=== PATIENT | male | born 1935 | race Two or more races ===

== ENCOUNTER 2018-05-23 18:45 | Inpatient (IN) | payer MEDICARE, MEDICAID ==
--- NOTE | 2018-05-23 18:49 | ED Physician Chart ---
ED Chief Complaint/HPI - Patient Information Date Seen:: 05/23/18 Time Seen:: 18:48 Chief Complaint:: Dysuria History of Present Illness:: 82 yo male with history of urinary incontinence and UTI for 6 months. Patient was recently seen by a urologist Dr. Ryan Gauthier 4 days ago. BPH was ruled out by the urologist. The office of urologist called patient today to inform positive urinary tract infection. In addition, patient was recently noticed by family to become more confused with loss of short term memory. Patient was brought by daughter to ER for evaluation of confusion and UTI. Patient's recent CT head wo contrast done at [facility] on 01/11/18 showed old right occipital infarct, old left basal ganglia lacunar infarct. Lumbar spine X ray on 01/12/18 showed degenerative disc disease L4-5 and L5-S1 without acute disease or lumbar compression. ED Review of Systems - Review of Systems General/Constitutional: No fever, No chills, Weakness Skin: No rash Head: No headache Eyes: No pain ENT: No nasal drainage Neck: No neck pain Cardio Vascular: No chest pain Pulmonary: Cough, Sputum GI: No nausea, No vomiting G/U: Dysuria Musculoskeletal: No bone or joint pain Neurological: Other (unsteady gait) ED Past Medical History - Past Medical History Past Medical History: HTN, DM, CVA/TIA, Dementia, Other (Urinary incontinence) Social History: Non Smoker (former somker), No Alcohol, No Drug Use Surgical History: other (Kidney stone removal ) Family Medical History - Family Member Mother History Unknown: Yes ED Physical Exam - Physical Examination General/Constitutional: Awake, Alert Head: Atraumatic Eyes: PERRL Skin: No ecchymosis ENMT: Nasal exam nl Neck: No nuchal rigidity Cardio Vascular: RRR, No murmur, gallop, rubs, NL S1 S2 GI: No tenderness/rebounding/guarding Extremities: Full ROM Neuro/Psych: No focal deficits ED Labs/Radiology/EKG Results - Lab Results Results: Laboratory Results - last 24 hr 05/23/18 05/23/18 05/23/18 19:10 19:10 19:10 WBC 7.4 RBC 5.10 Hgb 13.1 Hct 40.1 L MCV 78.6 L MCH 25.7 L MCHC Differential 32.8 RDW 13.8 Plt Count 258 MPV 7.9 Neutrophils % 60.7 Lymphocytes % 27.5 Monocytes % 8.1 Eosinophils % 2.4 Basophils % 1.3 PT 10.0 INR 0.96 PTT (Actin FS) 25.4 L Sodium 136 Potassium 3.8 Chloride 104 Carbon Dioxide 24.2 Anion Gap 11.6 BUN 16 Creatinine 0.8 Est GFR ( Amer) TNP Est GFR (Non-Af Amer) TNP BUN/Creatinine Ratio 20.0 Glucose 147 H Calcium 9.2 Total Bilirubin 0.8 AST 10 L ALT 10 Alkaline Phosphatase 57 Total Protein 6.9 Albumin 3.9 L Globulin 3.0 Albumin/Globulin Ratio 1.3 Urine Source Urine Color Urine Clarity Urine pH Ur Specific Norton Urine Protein Urine Glucose (UA) Urine Ketones Urine Blood Urine Nitrate Urine Bilirubin Urine Urobilinogen Ur Leukocyte Esterase Urine RBC Urine WBC Ur Epithelial Cells Urine Bacteria 05/23/18 20:00 WBC RBC Hgb Hct MCV MCH MCHC Differential RDW Plt Count MPV Neutrophils % Lymphocytes % Monocytes % Eosinophils % Basophils % PT INR PTT (Actin FS) Sodium Potassium Chloride Carbon Dioxide Anion Gap BUN Creatinine Est GFR ( Amer) Est GFR (Non-Af Amer) BUN/Creatinine Ratio Glucose Calcium Total Bilirubin AST ALT Alkaline Phosphatase Total Protein Albumin Globulin Albumin/Globulin Ratio Urine Source RANDOM Urine Color YELLOW Urine Clarity HAZY Urine pH 6.0 Ur Specific [place] 1.010 Urine Protein NEGATIVE Urine Glucose (UA) NEGATIVE Urine Ketones NEGATIVE Urine Blood NEGATIVE Urine Nitrate POSITIVE H Urine Bilirubin NEGATIVE Urine Urobilinogen 0.2 Ur Leukocyte Esterase MODERATE H Urine RBC 0-2 H Urine WBC 10-25 H Ur Epithelial Cells FEW Urine Bacteria MANY H - Radiology Results Results: CXR: increased interstitial lung markings, cardiomegaly - EKG Interpretations EKG Time:: 19:15 Rate & Rhythm: 76 bpm sinus Fifty Six: left axis deviation Comments:: nonspecific R wave changes ED Assessment - Assessment General Assessment: UTI Urinary incontinence Dementia Assessment/Comments:: CBC, CMP, UA, PT/PTT, PSA CXR, EKG Dr. Genao assumed care at 19:00 ED Septic Shock - . Is Septic Shock (SBP<90, OR Lactate>4 mmol\L) present?: No ED Reassessment (Disposition) - Reassessment Reassessment Condition:: Improved - Patient Disposition Discharge/Transfer:: Acute Care w/in this hosp ED Discharge Plan - Patient Disposition Admit/Discharge/Transfer: Acute Care w/in this hosp
[2018-05-23 19:18] LABS: % BASOPHILS 1.3 % (0.0-2.0); % EOSINOPHILS 2.4 % (0.0-5.0); % LYMPHOCYTES 27.5 % (20.0-50.0); % MONOCYTES 8.1 % (2.0-10.0); % NEUTROPHILS 60.7 % (40.0-80.0); BASOPHILE ABSOLUTE 0.1 Th/cumm (0-0.2); EOSINOPHILE ABSOLUTE 0.2 Th/cmm (0.1-0.4); HEMATOCRIT 40.1 % (41.0-60); HEMOGLOBIN 13.1 gm/dL (12-16); MEAN CELL VOLUME 78.6 fl (80-99); MEAN CORPUSCULAR HEMOGLOBIN 25.7 pg (27.0-31.0); MEAN CORPUSCULAR HGB CONC 32.8 pg (28.0-36.0); MEAN PLATELET VOLUME 7.9 fl; MONOCYTE ABSOLUTE 0.6 Th/cmm (0.3-1.0); NEUTROPHILE ABSOLUTE 4.5 Th/cmm (1.8-8.0); PLATELET COUNT 258 Th/cmm (150-400); RED CELL DISTRIBUTION WIDTH 13.8 % (11.5-20.0); WHITE BLOOD COUNT 7.4 Th/cmm (4.8-10.8)
[2018-05-23 19:33] LABS: ALB/GLOB RATIO 1.3 (1.0-1.8); ALBUMIN 3.9 gm/dL (4.2-5.5); ALKALINE PHOSPHATASE 57 U/L (34-104); ANION GAP 11.6 (7.0-16.0); BILIRUBIN,TOTAL 0.8 mg/dL (0.3-1.0); BUN - UREA NITROGEN 16 mg/dL (7-25); CALCIUM SERUM 9.2 mg/dL (8.6-10.3); CARBON DIOXIDE 24.2 mEq/L (21.0-31.0); CHLORIDE 104 mEq/L (98-107); CREATININE - SERUM 0.8 mg/dL (0.7-1.3); GLUCOSE 147 mg/dL (70-105); POTASSIUM SERUM 3.8 mEq/L (3.5-5.1); SGOT 10 U/L (13-39); SGPT/ALT 10 U/L (7-52); SODIUM SERUM 136 mEq/L (136-145); TOTAL PROTEIN,SERUM 6.9 gm/dL (6.0-8.3)
[2018-05-23 19:35] LABS: INR 0.96 (0.5-1.4)
[2018-05-23 20:32] LABS: URINE MICROSCOPIC INDICATED? YES; URINE SOURCE RANDOM
[2018-05-23 20:34] LABS: URINE BILIRUBIN NEGATIVE (NEGATIVE); URINE BLOOD NEGATIVE (NEGATIVE); URINE GLUCOSE (UA) NEGATIVE (NEGATIVE); URINE KETONE NEGATIVE (NEGATIVE); URINE LEUKOCYTE ESTERASE MODERATE (NEGATIVE); URINE NITRATE POSITIVE (NEGATIVE); URINE PROTEIN NEGATIVE (NEGATIVE); URINE UROBILINOGEN 0.2 E.U./dL (0.2 - 1.0)
[2018-05-23 20:42] LABS: URINE CLARITY HAZY (CLEAR); URINE COLOR YELLOW
[2018-05-23 20:43] LABS: URINE RBC 0-2 /hpf (0-5)
[2018-05-23 20:44] LABS: URINE BACTERIA MANY /hpf (NONE SEEN); URINE EPITHELIAL CELLS FEW /lpf (FEW)
[2018-05-23] MEDS ORDERED: Sulfamethoxazole/TMP 800/160mg Tab PO ONE (21:34)
[2018-05-23] MEDS ORDERED: Sulfamethoxazole/TMP 800/160mg Tab ONE (21:34)
[2018-05-23] MEDS ORDERED: Sodium Chloride 0.45% 1,000 ML IV SCH (23:00)
[2018-05-24] MEDS ORDERED: Levofloxacin 500mg/100mL 500 MG/100 ML BAG IV ONE (02:00)
[2018-05-24] MEDS ORDERED: Pneumococcal Vaccine 0.5 mL Vial IM ONE (02:17)
[2018-05-24] MEDS ORDERED: Dextrose 50% 50 mL Abboject IVP PRN (02:58)
[2018-05-24 05:55] LABS: % BASOPHILS 0.7 % (0.0-2.0); % EOSINOPHILS 3.4 % (0.0-5.0); % LYMPHOCYTES 26.8 % (20.0-50.0); % NEUTROPHILS 60.1 % (40.0-80.0); EOSINOPHILE ABSOLUTE 0.2 Th/cmm (0.1-0.4); HEMATOCRIT 38.2 % (41.0-60); HEMOGLOBIN 12.6 gm/dL (12-16); LYMPHOCYTE ABSOLUTE 1.6 Th/cmm (1.5-3.0); MEAN CELL VOLUME 78.4 fl (80-99); MEAN CORPUSCULAR HEMOGLOBIN 25.9 pg (27.0-31.0); MEAN PLATELET VOLUME 8.2 fl; MONOCYTE ABSOLUTE 0.5 Th/cmm (0.3-1.0); NEUTROPHILE ABSOLUTE 3.5 Th/cmm (1.8-8.0); PLATELET COUNT 234 Th/cmm (150-400); RED BLOOD COUNT 4.88 Mil/cmm (3.80-5.80); RED CELL DISTRIBUTION WIDTH 13.7 % (11.5-20.0); WHITE BLOOD COUNT 5.8 Th/cmm (4.8-10.8)
[2018-05-24 06:08] LABS: ALB/GLOB RATIO 1.2 (1.0-1.8); ALBUMIN 3.4 gm/dL (4.2-5.5); ALKALINE PHOSPHATASE 51 U/L (34-104); ANION GAP 11.4 (7.0-16.0); BILIRUBIN,TOTAL 0.7 mg/dL (0.3-1.0); BUN - UREA NITROGEN 15 mg/dL (7-25); CALCIUM SERUM 8.9 mg/dL (8.6-10.3); CARBON DIOXIDE 24.1 mEq/L (21.0-31.0); CHLORIDE 107 mEq/L (98-107); CREATININE - SERUM 0.8 mg/dL (0.7-1.3); GLUCOSE 129 mg/dL (70-105); POTASSIUM SERUM 3.5 mEq/L (3.5-5.1); SGOT 10 U/L (13-39); SGPT/ALT 9 U/L (7-52); SODIUM SERUM 139 mEq/L (136-145); TOTAL PROTEIN,SERUM 6.3 gm/dL (6.0-8.3)
--- NOTE | 2018-05-24 09:16 | Diagnostic Imaging Report ---
CHEST X-RAY: AP view INDICATION: Shortness of breath COMPARISON: None FINDINGS: Increased interstitial lung markings are seen with increased bibasilar lung markings noted. Prominence of the paratracheal soft tissues is noted. Mild prominent heart is noted. Degenerative changes of the spine are noted. IMPRESSION: Increased interstitial lung markings likely due to chronic lung changes. Bibasal atelectasis versus less likely infiltrate. There may be a trace left effusion. Prominent bilateral paratracheal soft tissues which may be due to body habitus. Thyroid goiter or lymphadenopathy cannot be excluded. If necessary, CT follow-up may be obtained. Mild cardiomegaly.
[2018-05-24] MEDS: INSULIN ASPART SLIDING SCALE 100 UNITS/ML UNIT SUBQ SCH ×4 (09:21→20:37)
[2018-05-24] MEDS ORDERED: INSULIN GLARGINE HUM REC ANLOG 20 UNIT SQ SCH (09:30)
[2018-05-24] MEDS ORDERED: INSULIN ASPART, RECOMBINANT 100 UNITS/ML SUBQ SCH (09:30)
[2018-05-24] MEDS ORDERED: [UNRECOGNIZED DRUG - MIXTURE] OP SCH (09:30)
[2018-05-24] MEDS: Sodium Chloride 0.45% 1,000 ML IV SCH (09:33)
[2018-05-24] MEDS: Insulin Detemir 100 units/mL 10mL Vial SUBQ SCH (09:39)
[2018-05-24] MEDS: Aspirin 81mg Chewable Tab PO SCH (09:44)
[2018-05-24] MEDS ORDERED: Tolterodine Tartrate 2 mg ER Cap PO SCH (09:45)
[2018-05-24] MEDS: Tolterodine Tartrate 4 mg ER Cap PO SCH (10:29)
--- NOTE | 2018-05-24 11:40 | History & Physical ---
ADMIT DATE: 05/24/2018 REASON FOR ADMISSION: Urinary tract infection in this patient with diabetes mellitus, insulin requiring; hypertension, hyperlipidemia, and Alzheimer's dementia. HISTORY OF PRESENTING ILLNESS: The patient is an 82-year-old gentleman who lives at home and family brought at, they unable to take care of him at home, found to have urinary tract infection and the patient is being admitted. Main complaint at present time is discomfort in suprapubic area. The patient's RN also at bedside and reported that patient had 3 times more than 800 mL of urine coming out without any difficulties and no blood noted. No fever noted since admission. PAST MEDICAL HISTORY: As mentioned above. CURRENT MEDICATIONS: Includes Lipitor 40 mg at bedtime, Ecotrin 81 mg once a day and Lantus insulin 20 units once a day, losartan 25 once a day, metformin 500 twice a day and Myrbetriq 50 mg at bedtime. ALLERGIES: PENICILLIN. SOCIAL HISTORY: Noncontributory. No smoking, alcohol, or substance abuse. FAMILY HISTORY: Noncontributory. REVIEW OF SYSTEMS: See the history of presenting illness. The patient denies any fever. No headache, no vision problem. No swelling problem. No chest pain and chest pressure. No cough or sputum production. No abdominal pain, no vomiting, no diarrhea. Denies any hematuria, no leg swelling or joint swelling. The patient's recall is poor and student recruiter and a case management social worker who speaks Pashto is also at bedside. PHYSICAL EXAMINATION: VITAL SIGNS: Temperature 98.1, pulse 68, respiratory rate 18, blood pressure 94/48, oxygen saturation 98% on room air. Height 1.63 meters, weight 98.4 kg, BMI 37.2. HEENT: Unremarkable. LUNGS: Clear. CARDIOVASCULAR: S1, S2 normal limit. ABDOMEN: Obese, otherwise benign. No CVA tenderness noted. No suprapubic tenderness noted. Bowel sound is active. EXTREMITIES: Dorsalis pedis palpable. No leg edema noted. LABORATORY TESTS: Significant for WBCs 5.8, hemoglobin 12.6, MCV 78, platelet count of 234,000, neutrophil 60,000. Sodium 139, potassium 3.5, chloride 107, bicarbonate 24, BUN 15, creatinine 0.8, glucose 129, and calcium of 8.9. Liver panel is unremarkable. Albumin 3.4. TSH 6. Urinalysis: pH 6.0, specific gravity 1.010, nitrite positive, leukocyte esterase moderate, WBCs 10-25, bacteria many, epithelial cells few. PSA is pending. Hemoglobin A1c is also pending. Lipid panel is pending. Pro time is 10, PTT 25. CXR : chronic interstitial changes, atelectasis ASSESSMENT AND PLAN: 1. Complicated urinary tract infection in this patient with diabetes mellitus, rule out obstructive uropathy. We will obtain ultrasound of kidney and bladder to rule out hydronephrosis or prostate enlargement and retention of the urine. An empiric Levaquin will be started, monitor the culture, and adjust antibiotics. 2. Insulin-dependent diabetes mellitus, type 2. Continue Accu-Chek sliding scale. Check A1c and continue current medication with metformin and Lantus insulin. 3. Hypertension. Continue Cozaar, currently stable. 4. 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 Reduce calorie diet and diabetic diet to reduce weight. 5. Hypoalbuminemia. 6. Elevated TSH. We will need to start the patient on Synthroid 25 mcg once a day and obtain total T3 , free T4 level and go from there. 7. Dementia. We will obtain Dr. Rutledge consult and 8. Urinary Rention / BPH : continue the patient's home medications with Myrbetriq or Detrol LA 4 mg per day. 9. Atelactasis bilat lung/ Interstitial lung : HHN Q 4 WA. 10. Placement : D/W account services manager. JOB# [id number] MTDD
[2018-05-24] MEDS: Albuterol/Ipratropium Neb 3 ML AERS HHN SCH ×2 (12:07→18:58)
--- NOTE | 2018-05-24 13:07 | Consultation ---
DATE OF CONSULTATION: 05/24/2018 PSYCHIATRIC CONSULTATION HISTORY OF PRESENT ILLNESS: Information is obtained by directly interviewing the patient as well as reviewing the admission papers. The patient is primarily Libyan speaking. As per the information, the patient has been brought over by the family and patient is being currently treated for UTI and psychiatric consultation is called to address the issue of the confusion. Chart is reviewed. The patient is interviewed. During the interview, the patient has not been able to provide much of information, but the patient has been mumbling to self. The patient is also having shortness of breath and is getting the oxygen treatment. The patient's family is reported to have been looking for placement of this patient because they are not able to deal with his worsening dementia. PAST PSYCHIATRIC HISTORY: Details are not known. MEDICAL HISTORY: Physical examination has been done by Dr. Oswald Booth. SUBSTANCE ABUSE HISTORY: None. LEGAL PROBLEMS: None at this time. STRENGTHS AND ASSETS: The patient is motivated. MENTAL EXAMINATION: The patient is an 82-year-old moderately obese, superficially cooperative. Eye contact is poor. Mood is noted to be irritable. Affect is constricted. Insight and judgment at this time are noted to be impaired. Impulse control is noted to be poor. Coping skills are noted to be poor. The patient has been having difficult time to cope with the stress. The patient has been going on a tangent and patient, however, has been denying any command hallucinations, paranoia is noted. The patient's short and long-term memory are noted to be impaired. The patient is being closely monitored at this time. DIAGNOSTIC IMPRESSION: AXIS I: Dementia and behavioral change secondary to the dementia. PLAN: To use the Ativan on a p.r.n. basis and follow the patient with the supportive therapy. JOB# [id number]
[2018-05-24] MEDS: Levofloxacin 250mg/50mL 250 MG/50 ML BAG IV SCH (20:38)
[2018-05-24] MEDS ORDERED: Non-Formulary Item 1 EA (Atorvastatin Calcium [Lipitor] 40 MG) PO SCH (21:00)
[2018-05-24] MEDS ORDERED: Non-Formulary Item 1 EA (Mirabegron [Myrbetriq] 50 MG) PO SCH (21:00)
[2018-05-24 21:28] LABS: A1C % 6.7 % (4.0-6.0)
[2018-05-25] MEDS: Albuterol/Ipratropium Neb 3 ML AERS HHN SCH ×4 (01:07→19:22)
[2018-05-25] MEDS: INSULIN ASPART SLIDING SCALE 100 UNITS/ML UNIT SUBQ SCH ×4 (06:33→21:40)
--- NOTE | 2018-05-25 07:44 | Diagnostic Imaging Report ---
Ultrasound urinary bladder History: Assess for urinary retention and hydronephrosis. Technique/procedure: Sonographic images of the urinary bladder was performed. Findings: Patent the prevoid bladder volume is 390 mL. Patient was unable to void. Urinary bladder jets were not visualized. No evidence of urinary bladder wall thickening. IMPRESSION: Distended urinary bladder with volume of 390 mL. The patient was unable to void during the exam. Urinary bladder jets were also not visualized. Clinical correlation and follow-up is recommended. Note dedicated renal ultrasound was not performed. Given patient's clinical history consider follow-up ultrasound of the kidneys for further assessment.
[2018-05-25] MEDS: Tolterodine Tartrate 4 mg ER Cap PO SCH (08:29)
[2018-05-25] MEDS: Aspirin 81mg Chewable Tab PO SCH (08:31)
[2018-05-25] MEDS: Insulin Detemir 100 units/mL 10mL Vial SUBQ SCH (08:31)
[2018-05-25] MEDS: Lactulose 10 Gm/15 mL 30mL UDC PO SCH (09:38)
[2018-05-25] MEDS: POLYETHYLENE GLYCOL 3350 17 GM PACK PO SCH (09:39)
[2018-05-25] MEDS: Levofloxacin 250mg/50mL 250 MG/50 ML BAG IV SCH (20:50)
--- NOTE | 2018-05-25 21:20 | Progress Notes ---
DATE: 05/25/2018 PSYCHIATRIC PROGRESS NOTE Staff was spoken to. The patient is interviewed. Mood is noted to be less irritable, but the patient is still confused. Insight and judgment at this time are noted to be still impaired. Impulse control seems to be limited. No side effects to the medications are noted. ASSESSMENT: The patient is still impulsive. PLAN: To continue the patient with the current medications and follow up with supportive therapy. [facility]# [id number]
[2018-05-26] MEDS: Albuterol/Ipratropium Neb 3 ML AERS HHN SCH ×4 (00:29→19:07)
[2018-05-26] MEDS: Sodium Chloride 0.45% 1,000 ML IV SCH (07:34)
[2018-05-26] MEDS: INSULIN ASPART SLIDING SCALE 100 UNITS/ML UNIT SUBQ SCH ×4 (08:03→20:39)
[2018-05-26] MEDS: Tolterodine Tartrate 4 mg ER Cap PO SCH (09:12)
[2018-05-26] MEDS: Aspirin 81mg Chewable Tab PO SCH (09:12)
[2018-05-26] MEDS: POLYETHYLENE GLYCOL 3350 17 GM PACK PO SCH (09:13)
[2018-05-26] MEDS: Insulin Detemir 100 units/mL 10mL Vial SUBQ SCH (09:15)
--- NOTE | 2018-05-26 11:09 | Diagnostic Imaging Report ---
Renal ultrasound HISTORY: Urinary retention. COMPARISON: Bladder ultrasound 05/24/2018 Technique: Sonography of the kidneys and urinary bladder was performed in multiple planes. FINDINGS: The right kidney measures 11.5 x 5.1 cm. No evidence of focal lesions or hydronephrosis. The left kidney measures 12.9 x 6 cm. Left renal cyst is noted measuring 2.9 cm. The prevoid bladder volume is 255 mL. Patient refused voiding. The bladder wall is borderline prominent. IMPRESSION: Prevoid bladder volume of 255 mL. The patient refused voiding. 2.9 cm left renal cyst. Mild increased size of the left kidney, nonspecific. No evidence of hydronephrosis. Borderline prominent urinary bladder wall. Inflammatory process cannot be excluded.
[2018-05-26] MEDS: Amikacin 500 mg in D5W 100mL (Q24HR) IV SCH ×2 (14:03→21:45)
--- NOTE | 2018-05-26 17:33 | Progress Notes ---
DATE: IDENTIFICATION: An 82-year-old male. SUBJECTIVE: The patient seen and examined. The patient is lying in the bed. The patient denies any chest pain, shortness of breath, palpitation, dizziness, or headache. PHYSICAL EXAMINATION: VITAL SIGNS: Temperature 98, pulse is 90, respiratory rate 18, and blood pressure 114/66. HEENT: No facial asymmetry. NECK: Supple, no JVD. HEART: Regular. CHEST AND LUNGS: Equal in expansion, no expiratory wheezing. ABDOMEN: Soft. No guarding or rigidity. Bowel sounds present. No palpable mass. EXTREMITIES: No edema. ASSESSMENT: 1. Chronic compression. 2. Complicated urinary tract infection. 3. Most likely benign prostatic hypertrophy with bladder outlet obstruction. 4. Alzheimer's type dementia. 5. Diabetes mellitus. 6. Hyperlipidemia. 7. Degenerative joint disease. 8. Obesity. 9. Hypothyroidism. 10. History of chronic constipation. PLAN: The patient is currently getting antibiotic, continue until I get the culture sensitivity back for now. The patient is to have monitoring the blood sugar and blood pressure. General nursing care along with continuation of other medications, diabetes management, fall precautions, PT, OT as well. The patient needs placement at this time, will have a placement at [facility]. JOB# [id number]
[2018-05-26] MEDS: Levofloxacin 250mg/50mL 250 MG/50 ML BAG IV SCH (20:16)
[2018-05-27] MEDS: Albuterol/Ipratropium Neb 3 ML AERS HHN SCH ×3 (00:05→13:55)
[2018-05-27] MEDS: INSULIN ASPART SLIDING SCALE 100 UNITS/ML UNIT SUBQ SCH ×2 (07:38→13:28)
[2018-05-27] MEDS: Insulin Detemir 100 units/mL 10mL Vial SUBQ SCH (08:42)
[2018-05-27] MEDS: Tolterodine Tartrate 4 mg ER Cap PO SCH (08:43)
[2018-05-27] MEDS: Aspirin 81mg Chewable Tab PO SCH (08:43)
[2018-05-27] MEDS: POLYETHYLENE GLYCOL 3350 17 GM PACK PO SCH (08:43)
[2018-05-27] MEDS: Lactulose 10 Gm/15 mL 30mL UDC PO SCH (08:43)
[2018-05-27] MEDS: Amikacin 500 mg in D5W 100mL (Q24HR) IV SCH (08:46)
[2018-05-27 09:10] LABS: T3 FREE 2.7; T4 FREE 1.12
[2018-05-27 09:12] LABS: ANION GAP 12.5 (7.0-16.0); BUN - UREA NITROGEN 15 mg/dL (7-25); CALCIUM SERUM 9.2 mg/dL (8.6-10.3); CARBON DIOXIDE 22.6 mEq/L (21.0-31.0); CHLORIDE 104 mEq/L (98-107); CREATININE - SERUM 0.9 mg/dL (0.7-1.3); GLUCOSE 166 mg/dL (70-105); POTASSIUM SERUM 4.1 mEq/L (3.5-5.1); SODIUM SERUM 135 mEq/L (136-145)
[2018-05-27] MEDS ORDERED: Probiotic Screen MC PRN (17:00)
--- NOTE | 2018-05-27 22:13 | Progress Notes ---
DATE: 05/27/2018 PATIENT'S IDENTIFICATION: An 82-year-old male. SUBJECTIVE: Patient seen and examined. The patient is admitted at Med/Surg floor. The patient has no new complaint. Urine cultures did reveal the patient has E. coli MDRO. Blood cultures are negative. OBJECTIVE: VITAL SIGNS: Temperature 96.9, pulse 101, respiratory rate 18, and blood pressure 114/73. HEENT: No facial asymmetry. NECK: Supple, no JVD. HEART: Regular. CHEST: Lung equal in expansion, no wheezing. ABDOMEN: Soft. EXTREMITIES: No edema. AVAILABLE DIAGNOSTIC DATA: MAR reviewed. CLINICAL IMPRESSION: 1. Complicated urinary tract infection. 2. Benign prostatic hypertrophy. 3. Alzheimer dementia. 4. Diabetes. 5. Hyperlipidemia. 6. Degenerative joint disease. 7. Obesity. 8. Hypothyroidism. 9. History of chronic constipation. PLAN: The patient is stable enough to go to lower level of care with IV antibiotic to be given. We will talk to case management about discharging the patient to lower level of care. Discharge summary as dictated. JOB# [id number]
[2018-05-28] MEDS ORDERED: Lactobacillus Rhamnosus GG 15 Billion CFU CAP.SPRINK PO SCH (09:00)
== END 2018-05-27 18:39 | DRG 690 ==
LOC: ER 18:45 → MSI 22:30
PROVIDERS: ADMIT Internal Medicine; ATTEND Internal Medicine
DX: N39.0 Urinary tract infection, site not specified (principal); J98.11 Atelectasis; F02.81 Dementia in other diseases classified elsewhere, unspecified severity, with behavioral disturbance; N40.1 Benign prostatic hyperplasia with lower urinary tract symptoms; E11.9 Type 2 diabetes mellitus without complications; I10 Essential (primary) hypertension; R33.8 Other retention of urine; M51.37 Other intervertebral disc degeneration, lumbosacral region; R32 Unspecified urinary incontinence; E78.5 Hyperlipidemia, unspecified; G30.9 Alzheimer's disease, unspecified; E66.09 Other obesity due to excess calories; M19.90 Unspecified osteoarthritis, unspecified site; E03.9 Hypothyroidism, unspecified; K59.09 Other constipation; Z86.73 Personal history of transient ischemic attack (TIA), and cerebral infarction without residual deficits; Z79.4 Long term (current) use of insulin; Z68.36 Body mass index [BMI] 36.0-36.9, adult; Z87.891 Personal history of nicotine dependence
CPT/HCPCS: 36415-UA; 71045-TC; 76770-TC; 76857-TC; 80048-TC; 80053-TC; 80150-TC; 81001-TC; 82607-90; 82948-90; 83036-90; 84153-90; 84439-90; 84443-TC; 84479-90; 85025-TC; 85610-TC; 87086-90; 93005; 94640; 94760; J0278; J1815; J1956; Z7610